=== PATIENT | male | born 1925 | race Caucasian/White ===

== ENCOUNTER → 2016-11-05 | Outpatient (CLI) | payer MEDICARE, BC ==
[~2016-11-05] MED LIST: ALBUTEROL 0.5ML NEB; ALBUTEROL MININEB NEB; ALPHAGAN P5 ML OU; AMARYL PO; AMBIEN PO; AMIODARONE HCL200 MG PO; AMIODARONE PO; ASPIRIN PO; BUMEX PO; BUMEX1 MG PO; CENTRUM SILVER PO; COREG CR PO; COREG PO; COREG3.125 M1 PO; COREG3.125 MG PO; DALIRESP500 MCG PO; DEMADEX PO; DIOVAN HCT 160/1 TAB PO; DIOVAN HCT PO; DIOVAN PO; ELIQUIS2.5 MG PO; FLONASE16 GM; IMDUR PO; ISMO20 MG PO; ISOSORBIDE MONO30 M1 PO; JANUVIA PO; KCL PO; LASIX PO; LATANOPROST2.5 ML OU; LEVALBUTER1.25 MG/2 INH; LEVAQUIN PO; LIPITOR20 MG PO; LO-DOSE ASPIRIN81 M1 PO; METOLAZONE5 MG PO; OXYGEN; PATIENT'S PHARMACY; PLAVIX PO; PREDNISONE PO; SINGULAIR PO; SPIRIVA18 MCG INH; SYMBICORT INH; VICTOZA0.6 MG/0.1 SQ; VICTOZA0.6 MG/0.1 SUBQ; XOPENEX1.25 MG/0. NEB; ZITHROMAX PO; ZOFRAN PO
--- NOTE | ~2016-11-05 | CT57 ---
[facility] A Service of [facility] & [facility] RADIOLOGY TEXT RESULTS PATIENT: LARRY CUNHA [facility] [birth year] UNIT #: [id number] AGE: [address]: Jethro Branch MD SEX: M ORDER DR: [id number] [facility] [address] [place], [place] [address] [id number] O MR#: [id number] #: [id number] NAME: LARRY CUNHA : 1925 SEX: M STUDY DATE/TIME: 11/05/2016 13:59 UNIT: [facility] ROOM: STUDY DESCRIPTION: CT Chest Wo Cont Attending Physician: Jethro Branch M.D. Referring Physician: Jethro Branch M.D. Ordering Physician: Jethro Branch M.D. Primary Care Physician: Lenny Canchola M.D. MEDICAL IMAGING REPORT This report is preliminary unless electronic signature is present EXAM CT of the chest without contrast INDICATIONS Spot on the lung. This was initially seen on a prior CT from September 2009, as well as on another CT from March 2009. It is located within the left upper lobe. TECHNIQUE Axial CT images were obtained from the thoracic inlet through the dome of the diaphragm. No intravenous contrast material was administered. This CT exam was performed with one or more of the following radiation dose reduction techniques: Automatic exposure control, adjustment of mA and/or kV according to patient size, and iterative reconstruction. FINDINGS On prior studies, patient was noted to have a left upper lobe noncalcified pulmonary nodule measuring up to 1.0 x 0.8 cm. In the same area today, this patient has developed a large area of consolidation measuring up to 6.1 x 2.8 cm, which has associated cavitation. An additional area of consolidation is seen within the right upper lobe; it measures about 1.3 x 0.7 cm and is associated with some mild bronchiectasis. Background emphysematous changes are noted. Additional patchy consolidation is noted within the left lower lobe. This area measures up to about 1.4 cm. The thyroid gland, trachea and esophagus appear unremarkable. There is no pleural or pericardial effusion. There are extensive calcifications of the thoracic aorta and coronary arteries. I do not really think mediastinal lymph nodes appear pathologically enlarged. Images through the upper abdomen demonstrate some low attenuation lesions within the spleen, which are new when compared to the prior exam. Potentially, these could reflect some benign lesions such as hemangiomata, but are again new. The larger seen superiorly measures up to 2.6 cm, while the smaller is STS. [facility] A Service of [facility] RADIOLOGY TEXT RESULTS PATIENT: LARRY CUNHA LOCATION: [facility] : [birth year] UNIT #: [id number] AGE: [address]: Jethro Branch MD SEX: M ORDER DR: located inferiorly and measures about 1.7 cm. There is some mild aneurysmal dilatation of the visualized aorta measuring 2.5 x 2.3 cm. No aggressive osseous abnormalities are seen. IMPRESSION 1. On prior study, the patient was noted to have a left upper lobe noncalcified pulmonary nodule measuring up to 1.0 x 0.8 cm. There is now an area of dense consolidation seen within this area with associated cavitation. The possibility that this reflects cavitary neoplasm is certainly not excluded, although infectious etiologies such as TB would also be in the differential. Characterization with PET is suggested. This will also allow for evaluation of an additional area of consolidation within the right upper lobe measuring up to 1.3 x 0.7 cm, as well as a additional area of consolidation within the left lower lobe measuring up to about 1.4 cm. 2. Background emphysematous changes. 3. 2 low-attenuation lesions are now noted within the spleen. These certainly could reflect benign splenic hemangiomata. PET would probably allow for some additional characterization. Please see the body of the report for any other additional incidental findings. Dictated by... Kalyani Campbell M.D. THIS IS AN ELECTRONICALLY VERIFIED REPORT Kalyani Campbell M.D. at 11/06/2016 4:58 PM AFF/psc TD: 11/05/2016 18:12 JOB #: [id number] MEDICAL IMAGING REPORT Page 1 of 1 COPY
== END | disposition home or self-care (01) ==
LOC: CCAT 13:36
DX: R93.8 Abnormal findings on diagnostic imaging of other specified body structures (principal); R91.8 Other nonspecific abnormal finding of lung field; J98.4 Other disorders of lung; D73.89 Other diseases of spleen
CPT/HCPCS: 71250

== ENCOUNTER → 2016-11-19 | Day surgery (SDC) | payer MEDICARE, BC ==
--- NOTE | ~2016-11-19 | OR ---
Unit #: [id number] #: [id number] Patient: LARRY CUNHA [id number] [address] [address] [id number] O MR#: [id number] NAME: LARRY CUNHA ROOM: Date of Procedure: 11/19/2016 Admission Date: 11/19/2016 Surgeon: Jethro Branch M.D. : 1925 Attending Physician: Jethro Branch M.D. Primary Care Physician: Lenny Canchola M.D. OPERATIVE REPORT PROCEDURE PERFORMED Flexible fiberoptic bronchoscopy INDICATION FOR PROCEDURE Abnormal CT with worsening left upper lobe infiltrate. FINDINGS No endobronchial lesions seen. Mucus was encountered and removed. Evidence of chronic bronchitis, but no endobronchial lesions. SEDATION MAC. COMPLICATION Zero. CONDITION AFTER PROCEDURE Stable to recovery room. DESCRIPTION OF PROCEDURE The patient was brought to the endoscopy suite and monitored for heart rate, blood pressure, saturations, and end-tidal CO2. Sedated with MAC, please see their notes for details. Anesthetized with 2% lidocaine in both nares. Viscous lidocaine was applied to his right naris. Bronchoscope was introduced without difficulty. Vocal cords were visualized. They were normal in configuration and motion, anesthetized x2. Main trachea was intubated. Mucus was immediately encountered. It was diluted and removed. Main airways were anesthetized. All sub-segments were identified. No endobronchial lesions were seen. BAL was performed in a standard fashion with 60 mL aliquots instilled x2. Left upper lobe apical segment with reasonable return given his severe emphysema. Some of the BAL fluid was recovered in bronchial washings. Bronchoscope was removed without difficulty and the patient was in good condition postprocedure. Dictated by... Ana Maria Domingo/robert TD: 11/19/2016 12:24 Unit #: [id number] #: [id number] Patient: LARRY CUNHA JOB #: [id number] CC: Ana Maria Gill M.D. OPERATIVE REPORT Page 1 of 1 X Jethro Branch MD PROCEDURE OPERATIVE NOTE
[2016-11-19 09:13] LABS: INR 1.1; PROTHROMBIN TIME (PATIENT) 11.3 SECONDS (9.6-11.5)
[2016-11-19 09:18] LABS: BASOPHIL% 0.7 % (0-2.5); EOSINOPHIL# 0.4 X10e3 (0-0.7); EOSINOPHIL% 9.4 % (0.0-7.0); HEMATOCRIT 37.9 % (38.0-50.0); HEMOGLOBIN 12.6 gm/dL (13.0-16.0); LYMPHOCYTE# 0.8 X10e3 (1.0-3.5); LYMPHOCYTE% 19.4 % (17.0-45.0); MEAN CELL VOLUME 92.3 FL (83-96); MEAN CORPUSCULAR HEMOGLOBIN 30.7 PG (28-34); MEAN CORPUSCULAR HGB CONC 33.2 g/dL (30-36); MEAN PLATELET VOLUME 8.6 FL (6.5-11.5); MONOCYTE# 0.5 X10e3 (0-1.0); MONOCYTE% 12.5 % (3.0-12.0); NEUTROPHIL# 2.4 X10e3 (1.5-7.1); PLATELET COUNT 104 X10e3 (140-420); RED BLOOD COUNT 4.11 X10e (3.90-5.60); RED CELL DISTRIBUTION WIDTH 15.4 % (11.0-15.5); WHITE BLOOD COUNT 4.2 X10e3 (4.0-10.5)
[2016-11-19 09:19] LABS: DIFF IND NO
[2016-11-19 12:12] LABS: BODY FLUID SOURCE BRONCHIAL LAVAGE
[2016-11-19 12:13] LABS: BF TOTAL NUCLEATED CELL COUNT 50 CMM (0-100); BODY FLUID APPEARANCE CLEAR; BODY FLUID RBC <10000 CMM
== END | disposition home or self-care (01) ==
LOC: COPS 08:22
PROVIDERS: Internal Medicine
DX: J44.9 Chronic obstructive pulmonary disease, unspecified (principal); I25.10 Atherosclerotic heart disease of native coronary artery without angina pectoris; E11.9 Type 2 diabetes mellitus without complications; M19.90 Unspecified osteoarthritis, unspecified site; N18.3 Chronic kidney disease, stage 3 (moderate); Z87.891 Personal history of nicotine dependence; Z88.1 Allergy status to other antibiotic agents; Z91.048 Other nonmedicinal substance allergy status; Z79.01 Long term (current) use of anticoagulants; Z79.82 Long term (current) use of aspirin; Z79.84 Long term (current) use of oral hypoglycemic drugs; Z79.899 Other long term (current) drug therapy; Z99.81 Dependence on supplemental oxygen; Z95.810 Presence of automatic (implantable) cardiac defibrillator; Z95.5 Presence of coronary angioplasty implant and graft
CPT/HCPCS: 82947; 85025; 85610; 85730; 87070; 87077; 87102; 87106; 87116; 87186; 87205; 87206; 88108; 88305; 89051; J0171

== ENCOUNTER 2016-11-27 17:00 | Emergency (ER) | payer MEDICARE, BC ==
--- NOTE | ~2016-11-27 | CT4 ---
[facility] A Service of [facility] & [facility] RADIOLOGY TEXT RESULTS PATIENT: LARRY CUNHA LOCATION: [facility] : [birth year] UNIT #: [id number] AGE: [address]: Don Steen MD SEX: M ORDER DR: [id number] [facility] [address] [place], [place] [address] [id number] MR#: [id number] #: [id number] NAME: LARRY CUNHA. : 1925 SEX: M STUDY DATE/TIME: 11/27/2016 18:05 UNIT: [facility] ROOM: STUDY DESCRIPTION: CT Abd and Pelv Wo Cont Attending Physician: Don Steen M.D. Ordering Physician: Don Steen M.D. Primary Care Physician: Lenny Canchola M.D. MEDICAL IMAGING REPORT This report is preliminary unless electronic signature is present EXAM CT of the abdomen and pelvis without contrast INDICATIONS Left flank pain after tripping on a step today. Patient is on Eliquis. TECHNIQUE Axial CT images were obtained from the dome of the diaphragm through the symphysis pubis. No oral or intravenous contrast material was administered. This CT exam was performed with one or more of the following radiation dose reduction techniques: Automatic exposure control, adjustment of mA and/or kV according to patient size, and iterative reconstruction. FINDINGS Images through the lung bases demonstrate advanced bilateral emphysematous changes. There is a small hiatal hernia. Low-attenuation lesion is identified within the spleen, which likely reflects a benign lesion such as a cyst or hemangioma; it was also present on the November 05, 2016 CT. Pancreas is unremarkable, as are the adrenal glands given unenhanced technique. On prior study, patient was noted to have a nodule within the left lower lobe; it measured about 1.4 cm in size. As was discussed on prior study, patient could be further evaluated with PET or short-term CT followup in 3 months. Nonobstructing stone is identified within the left kidney; right kidney appears normal. Liver is within normal limits. Gallbladder appears to potentially have some gallbladder wall edema. Clinical significance is uncertain but would be better evaluated with gallbladder ultrasound, particularly if the patient has any symptoms referable to the right upper STS. [facility] A Service of [facility] & [facility] RADIOLOGY TEXT RESULTS PATIENT: LARRY CUNHA LOCATION: [facility] : [birth year] UNIT #: [id number] AGE: [address]: Don Steen MD SEX: M ORDER DR: maria l. There is a fluid-density structure which is seen adjacent to the aorta at the level of the hiatus; it measures up to about 1.6 cm in size, and potentially this could reflect the thoracic duct. Liver appears unremarkable. There is mild aneurysmal dilatation of the abdominal aorta measuring up to 2.5 x 2.4 cm. Urinary bladder is within normal limits. Patient is suspected to be status post TURP procedure. There is no evidence of mechanical bowel obstruction. Urinary bladder appears unremarkable. Patient does have a loop of small bowel which extends into the most proximal aspect of the right inguinal canal without any evidence of obstruction. 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 No aggressive osseous abnormalities are identified. Patient does have a comminuted fracture of the left twelfth rib, as well as of the left eleventh rib. No rib fractures are seen on the right. There is also a left tenth rib fracture as well. Patient does have soft tissue hematoma seen overlying the left flank, but no intraabdominal injury is identified. IMPRESSION 1. This patient has fractures at the left tenth, eleventh and twelfth ribs with an overlying soft tissue hematoma seen along the left flank. No pneumothorax is seen and no pleural effusion is identified. 2. No intraabdominal or intrapelvic injury is seen. 3. Patient does appear to have some gallbladder wall edema of uncertain clinical significance. This could be better assessed with gallbladder ultrasound, particularly if the patient has symptoms within the right upper quadrant. 4. Small hiatal hernia. 5. Low-attenuation lesions identified within the spleen may reflect hemangiomata. 6. Mild aneurysmal dilatation of the infrarenal abdominal aorta. 7. Patient has advanced background emphysematous changes and does have an area of consolidation at the left lung base measuring up to 1.4 cm. This area is indeterminate, as was discussed on prior examination. It could be better assessed with PET or followup CT in January 2017. Please see the body of the report for any other additional incidental findings. Dictated by... Kalyani Campbell M.D. THIS IS AN ELECTRONICALLY VERIFIED REPORT Kalyani Campbell M.D. at 11/28/2016 10:58 AM AFF/psc [facility]. [facility] A Service of [facility] & [facility] RADIOLOGY TEXT RESULTS PATIENT: LARRY CUNHA LOCATION: [facility] : [birth year] UNIT #: [id number] AGE: [address]: Don Steen MD SEX: M ORDER DR: TD: 11/28/2016 02:15 JOB #: [id number] MEDICAL IMAGING REPORT Page 1 of 1 COPY
[~2016-11-27 17:00] MED LIST changes: -ALBUTEROL 0.5ML NEB; -ALPHAGAN P5 ML OU; -AMIODARONE HCL200 MG PO; -BUMEX1 MG PO; -COREG3.125 MG PO; -ISOSORBIDE MONO30 M1 PO; -LATANOPROST2.5 ML OU; -LEVAQUIN PO
[2016-11-27] MEDS ORDERED: LEVAQUIN PO (17:24)
[2016-11-27] MEDS ORDERED: ELIQUIS2.5 MG PO (17:24)
[2016-11-27] MEDS ORDERED: AMIODARONE HCL200 MG PO (17:25)
[2016-11-27] MEDS ORDERED: ALBUTEROL 0.5ML NEB (17:25)
[2016-11-27] MEDS ORDERED: LIPITOR20 MG PO (17:25)
[2016-11-27] MEDS ORDERED: ISOSORBIDE MONO30 M1 PO (17:25)
[2016-11-27] MEDS ORDERED: KCL PO (17:26)
[2016-11-27] MEDS ORDERED: BUMEX1 MG PO (17:26)
[2016-11-27] MEDS ORDERED: METOLAZONE5 MG PO (17:26)
[2016-11-27] MEDS ORDERED: LATANOPROST2.5 ML OU (17:26)
[2016-11-27] MEDS ORDERED: COREG3.125 MG PO (17:27)
[2016-11-27] MEDS ORDERED: ALPHAGAN P5 ML OU (17:27)
[2016-11-27] MEDS ORDERED: VICTOZA0.6 MG/0.1 SUBQ (17:27)
[2016-11-27] MEDS ORDERED: PATIENT'S PHARMACY (17:28)
[2016-11-27 18:16] LABS: BASOPHIL% 0.5 % (0-2.5); EOSINOPHIL# 0.4 X10e3 (0-0.7); EOSINOPHIL% 8.2 % (0.0-7.0); HEMATOCRIT 33.4 % (38.0-50.0); HEMOGLOBIN 11.2 gm/dL (13.0-16.0); LYMPHOCYTE# 0.5 X10e3 (1.0-3.5); LYMPHOCYTE% 10.6 % (17.0-45.0); MEAN CELL VOLUME 91.2 FL (83-96); MEAN CORPUSCULAR HEMOGLOBIN 30.6 PG (28-34); MEAN CORPUSCULAR HGB CONC 33.5 g/dL (30-36); MEAN PLATELET VOLUME 8.2 FL (6.5-11.5); MONOCYTE# 0.6 X10e3 (0-1.0); MONOCYTE% 13.7 % (3.0-12.0); NEUTROPHIL# 2.9 X10e3 (1.5-7.1); PLATELET COUNT 101 X10e3 (140-420); RED BLOOD COUNT 3.66 X10e (3.90-5.60); WHITE BLOOD COUNT 4.3 X10e3 (4.0-10.5)
[2016-11-27 18:21] LABS: DIFF IND NO
[2016-11-27 18:30] LABS: INR 1.1; PARTIAL THROMBOPLASTIN TIME 27.5 SECONDS (23.5-31.3)
[2016-11-27 18:38] LABS: URINE SOURCE CLEAN CATCH
[2016-11-27 18:41] LABS: BUN/CREATININE RATIO 25.33; CALCIUM SERUM 9.3 mg/dL (8.4-10.2); CREATININE SERUM 1.5 mg/dL (0.6-1.4); GLOM FILT RATE Estimated 40.7 mL/min (>60); POTASSIUM 3.6 mmol/L (3.5-5.1)
[2016-11-27 18:43] LABS: URINE APPEARANCE CLEAR; URINE BILIRUBIN NEG (NEG); URINE BLOOD NEG (NEG); URINE COLOR YELLOW; URINE GLUCOSE NEG (NEG); URINE KETONE NEG (NEG); URINE LEUKOCYTE ESTERASE NEG (NEG); URINE NITRATE NEG (NEG); URINE PH 7.5 (5-8); URINE PROTEIN NEG (NEG); URINE SPECIFIC GRAVITY 1.017 (1.003-1.035)
[2016-11-27 18:51] LABS: CULTURE INDICATED? NO
== END 2016-11-27 20:32 | disposition home or self-care (01) ==
LOC: CED 17:00
PROVIDERS: Emergency Medicine
DX: S22.42XA Multiple fractures of ribs, left side, initial encounter for closed fracture (principal); S30.1XXA Contusion of abdominal wall, initial encounter; E11.9 Type 2 diabetes mellitus without complications; J44.9 Chronic obstructive pulmonary disease, unspecified; I12.9 Hypertensive chronic kidney disease with stage 1 through stage 4 chronic kidney disease, or unspecified chronic kidney disease; N18.9 Chronic kidney disease, unspecified; Z79.4 Long term (current) use of insulin; Z88.1 Allergy status to other antibiotic agents; W01.0XXA Fall on same level from slipping, tripping and stumbling without subsequent striking against object, initial encounter; Y92.009 Unspecified place in unspecified non-institutional (private) residence as the place of occurrence of the external cause
CPT/HCPCS: 36415; 74176; 80048; 81003; 85025; 85610; 85730; 94010; 99284